=== PATIENT | female | born 1985 | race Caucasian/White ===

== ENCOUNTER 2016-07-04 20:03 | Emergency (ER) | payer MEDICAID ==
[~2016-07-04] VITALS: Ht 152.4 cm; Wt 71.4 kg
[2016-07-04 20:25] VITALS: BP 136/77
--- NOTE | 2016-07-04 22:03 | NUR ---
AMBULATED TO ER OF2
--- NOTE | 2016-07-04 22:16 | NUR ---
31Y/F PATIENT PRESENTS TO ED WITH C/O SORETHROAT X 2 DAYS . PT STATES SHE HAS BEEN COUGHING AND HER THROAT START HURTING LIKE SOMETHING STUCK IN HER THROAT . DENIES N/V/D; SKIN IS PINK/WARM/DRY; AAOX4 WITH EVEN AND STEADY GAIT; LUNGS CLEAR BL; HR EVEN AND REGULAR; PT DENIES ANY FEVER, CP, SOB, OR COUGH AT THIS TIME; PATIENT STATES PAIN OF 8/10 AT THIS TIME; VSS; PATIENT POSITIONED FOR COMFORT; HOB ELEVATED; BEDRAILS UP X2; BED DOWN. ER MD MADE AWARE OF PT STATUS.
--- NOTE | 2016-07-04 22:47 | NUR ---
Patient being evaluated by physician.
--- NOTE | 2016-07-05 00:20 | NUR ---
Patient discharged with v/s stable. Written and verbal after care instructions given and explained. Patient alert, oriented and verbalized understanding of instructions. Ambulatory with steady gait. All questions addressed prior to discharge. ID band removed. Patient advised to follow up with PMD. Rx of PEPSID 20 MG given. Patient educated on indication of medication including possible reaction and side effects. Opportunity to ask questions provided and answered.
[2016-07-05 00:22] VITALS: BP 130/75
--- NOTE | 2016-07-05 21:50 | NUR ---
ELDER IZAGUIRRE CALLED PT AT HOME AT #[phone] PT STS " I FEEL SO MUCH BETTER. I DO NOT WANT TO COME BACK TO [facility]. I WILL CALL MY DR IN THE MORNING.." ERMD DR SNYDER NOTIFRED. PT WAS ALSO TOLD TO COME BACK TO [facility] ER OR ANY ER OR [facility] AT ANY TIME SHE NEEDS.
== END 2016-07-05 00:20 | disposition home or self-care (01) ==
LOC: MED 20:03
DX: R13.10 Dysphagia, unspecified (principal)

== ENCOUNTER 2016-09-16 08:44 | Emergency (ER) | payer MEDICAID ==
[~2016-09-16] VITALS: Ht 154.9 cm; Wt 70.4 kg
[2016-09-16 09:02] VITALS: BP 114/74
--- NOTE | 2016-09-16 10:23 | NUR ---
PT TAKEN TO BED 6.
--- NOTE | 2016-09-16 10:33 | NUR ---
31/F presents to ED for evaluation of left ear. Pt states she has a decrease in hearing for the past 3 days. Pt denies any pain. Pt states she can hear but it is very difficult. Pt states "I feel like my ear is plugged." Denies any cough or cold symptoms. Patient is AOX4, faroese speaking, clear speech. Denies any N/V/D. VSS.
--- NOTE | 2016-09-16 11:05 | NUR ---
EMT at bedside for left ear irrigation.
--- NOTE | 2016-09-16 11:55 | NUR ---
Patient discharged with v/s stable. Written and verbal after care instructions given and explained. Patient alert, oriented and verbalized understanding of instructions. Ambulatory with steady gait. All questions addressed prior to discharge. ID band removed. Patient advised to follow up with PMD. Rx of CERUMENEX 10% OTIC SOLUTION given. Patient educated on indication of medication including possible reaction and side effects. Opportunity to ask questions provided and answered.
[2016-09-16 11:56] VITALS: BP 139/88
== END 2016-09-16 11:55 | disposition home or self-care (01) ==
LOC: MED 08:44
DX: H61.22 Impacted cerumen, left ear (principal)
CPT/HCPCS: 99283

== ENCOUNTER 2017-04-08 10:44 | Emergency (ER) | payer MEDICAID ==
[~2017-04-08] VITALS: Ht 152.4 cm; Wt 57.6 kg
[2017-04-08 10:58] VITALS: BP 122/89
[2017-04-08 11:35] VITALS: BP 119/77
== END 2017-04-08 11:35 | disposition home or self-care (01) ==
LOC: MED 10:44
DX: F41.9 Anxiety disorder, unspecified (principal)
CPT/HCPCS: 99284

== ENCOUNTER 2018-07-02 12:18 | Emergency (ER) | payer MEDICAID ==
[~2018-07-02] VITALS: Ht 162.6 cm; Wt 79.4 kg
[2018-07-02 12:23] VITALS: BP 122/78
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
--- NOTE | 2018-07-02 13:17 | NUR ---
DR GUADARRAMA AT BEDSIDE
[2018-07-02 13:40] VITALS: BP 120/72
--- NOTE | 2018-07-02 13:40 | NUR ---
Patient discharged with v/s stable. Written and verbal after care instructions given and explained. Patient alert, oriented and verbalized understanding of instructions. Ambulatory with steady gait. All questions addressed prior to discharge. ID band removed. Patient advised to follow up with PMD. Rx of naprosyn 375mg given. Patient educated on indication of medication including possible reaction and side effects. Opportunity to ask questions provided and answered.
== END 2018-07-02 13:40 | disposition home or self-care (01) ==
LOC: MED 12:18
DX: S50.11XA Contusion of right forearm, initial encounter (principal); S70.01XA Contusion of right hip, initial encounter; R10.9 Unspecified abdominal pain; V49.59XA Passenger injured in collision with other motor vehicles in traffic accident, initial encounter; Y93.89 Activity, other specified; Y92.89 Other specified places as the place of occurrence of the external cause; Y99.8 Other external cause status
CPT/HCPCS: 99283